=== PATIENT | male | born 1960 | race Caucasian/White ===

== ENCOUNTER 2025-02-27 14:35 | Emergency (ER) | payer OTHER ==
[~2025-02-27] VITALS: Ht 167.6 cm; Wt 104.3 kg
[2025-02-27 16:04] LABS: BASOPHILS % 0.6 % (0.0-1.0); EOSINOPHILS % 2.9 % (0.0-6.0); LYMPHOCYTES % 41.2 % (18.0-39.1); MONOCYTES % 9.3 % (4.4-11.3); NEUTROPHILS % 45.7 % (38.7-80.0); RED CELL DISTRIBUTION WIDTH 13.1 % (11.7-14.4)
[2025-02-27] MEDS: SODIUM CHLORIDE 0.9% 1000ML 1,000 ML IV STA (16:12)
[2025-02-27] MEDS: Morphine 4mg INJECTION 4 MG/ML INJ IV STA (16:12)
[2025-02-27] MEDS: ONDANSETRON HCL INJ 2MG/ML 2ML 2 MG/ML VIAL IV STA (16:12)
[2025-02-27 16:13] LABS: LEUKOCYTE ESTERASE ,URINE NEGATIVE (NEGATIVE); PROTEIN,URINE DIPSTICK NEGATIVE (NEGATIVE)
[2025-02-27 16:14] LABS: EPITHELIAL CELLS,URINE FEW /LPF; URINE UROBILINOGEN 0.2 mg/dL (0.2 - 1); WBC,URINE (MAN) 0-5 /HPF (0-5)
[2025-02-27 16:28] LABS: INR 0.97
[2025-02-27 16:36] LABS: EST GLOMERULAR FILTRATION RATE 75 ML/MIN (>=60)
[2025-02-27 16:41] LABS: CORONAVIRUS COVID-19 AG NEGATIVE (NEGATIVE)
[2025-02-27] MEDS ORDERED: ULTRAM 50MG50 MG PO (18:21)
[2025-02-27 18:40] VITALS: PULSE 86; RESP 16; TEMP 97.2; O2SAT 98
[2025-02-27] MEDS ORDERED: IOPAMIDOL 370 MG/ML 100 ML INFUS..BTL INJ ONE (21:16)
== END 2025-02-27 18:40 | disposition home or self-care (01) ==
LOC: ER 15:19
DX: R10.31 Right lower quadrant pain (principal); N50.89 Other specified disorders of the male genital organs; K57.90 Diverticulosis of intestine, part unspecified, without perforation or abscess without bleeding; R09.89 Other specified symptoms and signs involving the circulatory and respiratory systems; Z11.52 Encounter for screening for COVID-19
CPT/HCPCS: 36415; 71045; 74177; 80053; 81001; 83690; 83735; 83880; 84484; 85025; 85610; 85730; 87086; 87428; 99284; J2270; J2405; J7030; Q9967